=== PATIENT | female | born 1945 | race Caucasian/White ===

== ENCOUNTER → 2017-02-06 | Outpatient (CLI) | payer MEDICARE, BC ==
--- NOTE | 2017-02-07 09:28 | MM ---
Reason for exam: screening (asymptomatic). Last mammogram was performed 1 year and 3 months ago. History: Patient is postmenopausal. Benign core biopsy of the right breast, 2000. Took unspecified hormones for 3 years 11 months. Physical Findings: A clinical breast exam by your physician is recommended on an annual basis and results should be correlated with mammographic findings. MG 3D Screening Mammo W/Cad Bilateral CC and MLO view(s) were taken. Prior study comparison: November 01, 2015, bilateral MG 3d screening mammo w/cad. January 19, 2014, bilateral digital screening mammo w/CAD. There are scattered fibroglandular densities. There is chronic nodularity in the right breast. No significant changes when compared with prior studies. ASSESSMENT: Benign, BI-RAD 2 RECOMMENDATION: Routine screening mammogram of both breasts in 1 year.
== END | disposition home or self-care (01) ==
LOC: RADMAMWWP 11:12
PROVIDERS: ATTEND Obstetrics & Gynecology
DX: Z12.31 Encounter for screening mammogram for malignant neoplasm of breast (principal)
CPT/HCPCS: 77063; G0202

== ENCOUNTER → 2017-03-10 | Outpatient (CLI) | payer MEDICARE, BC ==
[2017-03-10 09:40] LABS: ALT 37 U/L (9-52); AST 36 U/L (14-36); Alkaline Phosphatase 90 U/L (38-126); Anion Gap 8 mmol/L; Blood Urea Nitrogen 17 mg/dL (7-17); Calcium 9.4 mg/dL (8.4-10.2); Carbon Dioxide 25 mmol/L (22-30); Chloride 110 mmol/L (98-107); Cholesterol 164 mg/dL (<200); Glucose 100 mg/dL (74-99); HDL Cholesterol 87 mg/dL (40-60); Non-African American GFR(MDRD) >60 (>60 ml/min/1.73 sqM); Potassium 4.1 mmol/L (3.5-5.1); Sodium 143 mmol/L (137-145); Total Bilirubin 0.8 mg/dL (0.2-1.3); Total Protein 6.4 g/dL (6.3-8.2); Triglycerides 48 mg/dL (<150)
== END | disposition home or self-care (01) ==
LOC: LABWHC1 08:07
PROVIDERS: ATTEND Internal Medicine Interventional Cardiology
DX: E78.2 Mixed hyperlipidemia (principal)
CPT/HCPCS: 36415; 80053; 80061

== ENCOUNTER → 2018-01-06 | Outpatient (CLI) | payer MEDICARE, BC ==
[2018-01-06 09:29] LABS: ALT 47 U/L (9-52); AST 32 U/L (14-36); Cholesterol 154 mg/dL (<200); HDL Cholesterol 65 mg/dL (40-60); LDL Cholesterol,Calculated 78 mg/dL (0-99); Triglycerides 55 mg/dL (<150)
== END | disposition home or self-care (01) ==
LOC: LABWHC1 08:11
PROVIDERS: ATTEND Internal Medicine Interventional Cardiology
DX: E78.2 Mixed hyperlipidemia (principal)
CPT/HCPCS: 36415; 80061; 84450; 84460

== ENCOUNTER → 2018-06-15 | Outpatient (CLI) | payer MEDICARE, BC ==
--- NOTE | 2018-06-15 13:30 | BD ---
EXAMINATION TYPE: Axial Bone Density DATE OF EXAM: 06/15/2018 COMPARISON: 2013 CLINICAL HISTORY: post menopausal Height: 5'1 Weight: 135 FRAX RISK QUESTIONS: Family History (Parent hip fracture): y Secondary Osteoporosis: 3. Menopause before 45: RISK FACTORS HISTORY OF: Family History of Osteoporosis: Postmenopausal woman: MEDICATIONS: Additional Medications: cholesterol Additional History: EXAM MEASUREMENTS: Bone mineral densitometry was performed using the [employer] System. Bone mineral density as measured about the Lumbar spine is: ----- L1-L4(G/cm2): 1.086 T Score Values are as follows: ----- L2: -1.0 ----- L3: -0.6 ----- L4: -0.9 ----- L1-L4:-0.8 Bone mineral density has: Decreased -6.4% since study of: 01/19/2014 Bone mineral density about the R hip (g/cm2): 0.686 Bone mineral density about the L hip (g/cm2): 0.658 T Score values are as follows: -----R Neck: 0.1 -----L Neck: -0.1 -----R Total: 0.4 -----L Total: 0.4 Bone mineral density has: Decreased -6.7 % since study of: 01/19/2014 IMPRESSION: Normal study NOTE: T-SCORE=SD OF THE YOUNG ADULT MEAN.
--- NOTE | 2018-06-17 09:45 | MM ---
Reason for exam: screening (asymptomatic). Last mammogram was performed 1 year and 4 months ago. History: Patient is postmenopausal and has history of other cancer at age 44. Benign core biopsy of the right breast, 2000. Took estrogen for 3 years 11 months. Took progesterone for 3 years 11 months. Took unspecified hormones for 3 years 11 months. Physical Findings: A clinical breast exam by your physician is recommended on an annual basis and results should be correlated with mammographic findings. MG 3D Screening Mammo W/Cad Bilateral CC and MLO view(s) were taken. Prior study comparison: February 06, 2017, bilateral MG 3d screening mammo w/cad. November 01, 2015, bilateral MG 3d screening mammo w/cad. The breast tissue is heterogeneously dense. This may lower the sensitivity of mammography. Finding #1: Architectural distortion in the upper outer quadrant, anterior position of the right breast consistent with known biopsy change redemonstrated. Finding #2: There are typically benign vascular, round calcifications in both breasts. There is no discrete abnormality. ASSESSMENT: Benign, BI-RAD 2 RECOMMENDATION: Routine screening mammogram of both breasts in 1 year.
== END | disposition home or self-care (01) ==
LOC: RADMAMWWP 07:58
PROVIDERS: ATTEND Obstetrics & Gynecology
DX: Z12.31 Encounter for screening mammogram for malignant neoplasm of breast (principal); Z78.0 Asymptomatic menopausal state; Z13.820 Encounter for screening for osteoporosis
CPT/HCPCS: 77063; 77067; 77080

== ENCOUNTER → 2018-07-17 | Outpatient (CLI) | payer MEDICARE, BC ==
[2018-07-17 09:30] LABS: ALT 39 U/L (9-52); AST 32 U/L (14-36); Albumin 3.6 g/dL (3.5-5.0); Alkaline Phosphatase 91 U/L (38-126); Anion Gap 6 mmol/L; Blood Urea Nitrogen 19 mg/dL (7-17); Calcium 9.5 mg/dL (8.4-10.2); Carbon Dioxide 29 mmol/L (22-30); Chloride 108 mmol/L (98-107); Cholesterol 187 mg/dL (<200); Glucose 100 mg/dL (74-99); HDL Cholesterol 90 mg/dL (40-60); LDL Cholesterol,Calculated 85 mg/dL (0-99); Potassium 4.3 mmol/L (3.5-5.1); Sodium 143 mmol/L (137-145); Total Bilirubin 0.5 mg/dL (0.2-1.3); Total Protein 6.3 g/dL (6.3-8.2); Triglycerides 59 mg/dL (<150)
== END ==
LOC: LABWHC1 08:02
PROVIDERS: ATTEND Internal Medicine Interventional Cardiology
DX: E78.2 Mixed hyperlipidemia (principal)
CPT/HCPCS: 36415; 80053; 80061

== ENCOUNTER → 2019-01-23 | Outpatient (CLI) | payer MEDICARE, BC ==
[2019-01-23 17:03] LABS: Albumin 3.9 g/dL (3.80-4.90); Albumin/Globulin Ratio 2.05 (1.60-3.17); Anion Gap 5.9 mmol/L (4.00-12.00); Calcium 9.4 mg/dL (8.7-10.3); Carbon Dioxide 29.1 mmol/L (21.6-31.8); Globulin 1.9 g/dL (1.6-3.3); Potassium 4.4 mmol/L (3.5-5.5); Total Bilirubin 0.5 mg/dL (0.3-1.2); Total Protein 5.8 g/dL (6.2-8.2)
== END ==
LOC: LABWHC1 08:28
PROVIDERS: ATTEND Internal Medicine Interventional Cardiology
DX: E78.2 Mixed hyperlipidemia (principal)
CPT/HCPCS: 36415; 80053; 80061

== ENCOUNTER → 2019-06-22 | Outpatient (CLI) | payer MEDICARE, BC ==
--- NOTE | 2019-06-23 12:10 | MM ---
Reason for exam: screening (asymptomatic). Last mammogram was performed 1 year ago. History: Patient is postmenopausal and has history of other cancer at age 44. Benign core biopsy of the right breast, 2000. Took estrogen for 3 years 11 months. Took progesterone for 3 years 11 months. Took unspecified hormones for 3 years 11 months. Physical Findings: A clinical breast exam by your physician is recommended on an annual basis and results should be correlated with mammographic findings. MG 3D Screening Mammo W/Cad Bilateral CC and MLO view(s) were taken. Prior study comparison: June 15, 2018, bilateral MG 3d screening mammo w/cad. February 06, 2017, bilateral MG 3d screening mammo w/cad. The breast tissue is heterogeneously dense. This may lower the sensitivity of mammography. No significant changes when compared with prior studies. ASSESSMENT: Benign, BI-RAD 2 RECOMMENDATION: Routine screening mammogram of both breasts in 1 year.
== END | disposition home or self-care (01) ==
LOC: RADMAMWWP 14:26
PROVIDERS: ATTEND Obstetrics & Gynecology
DX: Z12.31 Encounter for screening mammogram for malignant neoplasm of breast (principal)
CPT/HCPCS: 77063; 77067

== ENCOUNTER → 2019-08-24 | Outpatient (CLI) | payer MEDICARE, BC ==
[2019-08-24 15:51] LABS: Chol/HDL Ratio 2.67; LDL Cholesterol,Calculated 103.4 mg/dL (0.0-131.0); VLDL Calculation 16.6 mg/dL (5.00-40.00)
== END ==
LOC: LABWHC1 08:47
PROVIDERS: ATTEND Internal Medicine Interventional Cardiology
DX: E78.2 Mixed hyperlipidemia (principal)
CPT/HCPCS: 36415; 80061; 84450; 84460

== ENCOUNTER 2019-09-09 09:51 | Day surgery (SDC) | payer MEDICARE, BC ==
[2019-09-08 08:25] VITALS: BMI 25.2
[~2019-09-09 09:51] MED LIST: DEXAMETHASONE SOD PHOSPHATE 10 MG/ML 1 ML VIAL IV ONE; HYDROmorphone 0.5 MG/0.5 ML SYRINGE IVP PRN; LACTATED RINGERS 1,000 ML IV SCH; ONDANSETRON 4 MG/2 ML VIAL IVP ONE; ONDANSETRON 4 MG/2 ML VIAL IVP PRN
[2019-09-09 10:22] VITALS: TEMP 97.9
[2019-09-09] MEDS ORDERED: MIDAZOLAM 2 MG/2 ML VIAL IV ONE (11:24)
[2019-09-09] MEDS ORDERED: fentaNYL (PF) 50 MCG/ML 2 ML AMP IV ONE (11:25)
--- NOTE | 2019-09-09 12:27 | P.ANPRN ---
Procedure Note - Anesthesia - Nerve Block Performed Left Popliteal Single Time Out Performed: Yes Date of Procedure: 09/09/19 Procedure Start Time: 11:28 Procedure Stop Time: 11:40 Location of Patient: PreOp Indication: Acute Post-Operative Pain Specifically requested for management of pain by DrAyesha: Grant Lang Sedation Type: Sedate with meaningful contact maintained Preparation: Sterile Prep Position: Right Lateral Catheter: None Needle Types: Pajunk Needle Gauge: 21 Ultrasound used to visualize needle placement: Yes Ultrasound used to observe medication spread: Yes Injectate: 0.5% Ropivacaine (see comment for volume) (20 cc plus decadron 4 mg) Blood Aspirated: No Pain Paresthesia on Injection Noted: No Resistance on Injection: Normal Image Stored and Saved: Yes Events: Uneventful and Well Tolerated
[2019-09-09] MEDS ORDERED: LIDOCAINE 1% INJ 10MG/ML (20 ML MDV) ONE (13:20)
[2019-09-09] MEDS ORDERED: MIDAZOLAM 2 MG/2 ML VIAL ONE (13:20)
[2019-09-09] MEDS ORDERED: fentaNYL (PF) 50 MCG/ML 2 ML AMP ONE (13:20)
[2019-09-09] MEDS ORDERED: ePHEDrine SULFATE/0.9% NACL/PF 50 MG/5 ML SYRINGE IV ONE (13:20)
[2019-09-09] MEDS ORDERED: PROPOFOL 10 MG/ML 20 ML VIAL IV ONE (13:20)
[2019-09-09] MEDS ORDERED: DEXAMETHASONE SOD PHOSPHATE 4 MG/ML 1 ML VIAL ONE ×2 (13:20)
[2019-09-09] MEDS ORDERED: ROPIVACAINE 5 MG/ML 30 ML VIAL ONE ×2 (13:20)
[2019-09-09] MEDS ORDERED: SUCCINYLCHOLINE CHLORIDE 100 MG/5 ML SYR IV ONE (13:20)
[2019-09-09] MEDS ORDERED: .MORPHINE SULFATE (INJ) 10 MG/ML SYRINGE ONE (13:20)
[2019-09-09] MEDS ORDERED: LACTATED RINGERS 1,000 ML IV ONE (16:34)
--- NOTE | 2019-09-09 16:37 | P.OP ---
Date of Procedure: 09/09/19 Preoperative Diagnosis: 1. Left hypermobile hallux valgus with increased intermetatarsal angle 2. 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 Left gastrocnemius equinus contracture 4. Left second toe mucous cyst Postoperative Diagnosis: Same Procedure(s) Performed: 1. Correction of left first ray hypermobility and midfoot arthritis with arthrodesis of multiple mid tarsal joints (arthrodesis of the first and second tarsometatarsal joint) 2. Correction of hallux valgus deformity with left modified Meyer procedure 3. Left gastrocnemius recession 4. Excision of mucous cyst left second toe 5. Application of short leg splint by physician, left leg Anesthesia: SUSHMA, regional Surgeon: Grant Lang Special Procedures Nurse #1: Emily Jay Estimated Blood Loss (ml): 25 IV fluids (ml): 1,500 Pathology: none sent Condition: stable Disposition: PACU Indications for Procedure: The patient is very pleasant. Healthy 74-year-old female who is at a long- standing history of problems with her left foot. She had a hypermobile hallux valgus and midfoot arthritis. She also had a mucous cyst over the second toe. She failed over 6 months of nonsurgical treatment and requested surgery. We discussed the multitude of different surgical procedures to address hallux valgus deformities. We also discussed treating her midfoot arthritis and mucous cyst at the same setting. My recommendation was to perform a midfoot fusion of the first and second tarsometatarsal joints to address both her hallux valgus deformity and midfoot arthritis. We also discussed excising the second toe mucous cyst and offloading the midfoot with a gastroc recession. We discussed the potential risks and complications of surgery including but not limited to risk of anesthesia, superficial infection, deep infection, delayed wound healing, superficial wound necrosis, nonunion of the fusion site, malunion of the fusion sites, somatic hardware, recurrence of deformity, damage to local blood vessels or nerves, continued or worsened pain, need for further surgery, DVT, PE, other medical complications, and possibly loss of life or limb. The patient voiced her understanding that while these are the most common complicati ons other less common complications are possible. She provided verbal and written consent to go forward with surgery. Description of Procedure: The patient is a benefit in preoperative holding and the correct left leg was marked with my initials. I reviewed the consent form with the patient and all of her questions were answered. The patient was given a block by anesthesia. She was then brought back to the operating room by anesthesia. She was positioned on the OR table where general anesthetic and preoperative antibiotics were given. A tourniquet was applied over the proximal aspect of the right leg. All bony prominences were well-padded. The right leg was then prepped and draped in the standard sterile fashion. Prior to starting surgery timeout was performed identifying the correct patient, operative extremity, and procedure. The patient's leg was then elevated, exsanguinated with an Esmarch bandage, and the tourniquet was inflated to 250 mmHg. I began by performing a gastrocnemius recession. A Ashwini-type lengthening was performed. A 3 cm longitudinal incision was marked out 1 thumb breadth posterior to the tibia at the medial distal muscle belly of the gastrocnemius. Skin incision was made with a scalpel and dissection was carried down carefully to the subcu cutaneous tissue. Crossing veins were controlled with electrocautery. The superficial fascia was incised. I bluntly developed the interval between the superficial fascia and the gastrocnemius aponeurosis in between the gastrocnemius aponeurosis and the soleus fascia. The sural nerve was seen to be adherent to the superficial fascia. Modified right angle retractors were placed in the gastrocnemius aponeurosis was cut in its entirety from medial to lateral. The wound was thoroughly irrigated and closed in layers. Attention was then turned to the left second toe. There was a digital mucous cyst over the dorsolateral aspect of the DIP joint. An elliptical incision was marked out over the toe in the skin and cyst was sharply removed with a scalpel. Dissection was carried down to the level of the DIP joint. There was a small osteophyte which was contoured. The wound was thoroughly irrigated and the incision was closed with 3-0 nylon. Attention was then turned to the dorsal midfoot. A longitudinal incision starting proximally at the proximal pole of the medial cuneiform and extending distally was centered between the first and second metatarsals. Skin incision was made with a scalpel. Dissection was carried down carefully through the subcutaneous tissue with tenotomy scissors. The EHL tendon sheath was incised and the tendon retracted laterally. The ostium over the first tarsometatarsal joint was sharply elevated. A saw was used to plane the first metatarsal base to allow for rotation. A quarter inch osteotome was used to free up the plantar capsule. Attention was then turned to the first webspace. A longitudinal incision was made in the first webspace. Dissection was carried down carefully through subcutaneous tissue. The lateral capsule, sesamoid suspensory ligament and adductor hallucis tendon were released to perform a modified Meyer portion of the procedure. Attention was then turned proximally. A joystick K wire was placed at the base of the first metatarsal. With rotation of this joystick pin and light pressure over the distal metatarsal I was able to close down the intermetatarsal angle and cover the sesamoids. A stab incision was made lateral base of the first metatarsal. A 2.5 mm fulcrum was placed. A stab incision was made over the midshaft of the second metatarsal. A positioner was placed with 1 luz maria over the lateral shaft of the second metatarsal and the other luz maria over the medial ridge of the first metatarsal. An internal medicine physician assistant rotated the joystick pin and I gently tightened the positioner to 2 fingerbreadths of tightness. Fluoroscopy was used to verify correction of the intermetatarsal angle, coverage of the sesamoids, and medial gapping of the first tarsometatarsal joint. A lateral x- ray was taken to verify that there was no elevation of the first metatarsal. A K wire was placed through the positioner to hold the reduction. A joint seeker was then placed for a low angle cut guide as far lateral as possible. I "made a corner" with the fulcrum. A low angle cutting guide was then gently slipped over the joint seeker. Its position was verified and the cutting guide was pinned into place. I verified that flat even cuts were made off the base of the first metatarsal and the cut off the medial cuneiform was parallel with the second tarsometatarsal joint. A small microsagittal saw was used to remove bone from the base of the first metatarsal and medial cuneiform. The oblique pin through the cut guide, the K wire to the positioner, and the positioner were removed. A compressor distractor device was placed with an extra 10 of rotation in the first tarsometatarsal joint was distracted. The Bone from both the medial cuneiform and first metatarsal removed. Flat even cuts had been made. The wound was thoroughly irrigated and the Bone was fenestrated with a 2.0 mm drill bit to facilitate fusion. The compressor device was gently tightened and the 1 mm fulcrum was placed laterally as the joint compressed. Fluoroscopy was verified that the joint was compressed and the correction was maintained on both an AP and a lateral view. An olive-tipped K wire was placed dorsolaterally across the joint generating excellent compression. One locking plate was placed directly medial and 2.7 mm locking screws were placed. The second locking plate was placed dorsally and locking screws were placed. The likely the joint appeared to be compressed nicely. Fluoroscopy was used to verify compression across the joint and correction of deformity. There is a small bump over the medial eminence or longitudinal incision was made over the medial eminence of the first MTP joint. The capsule was incised longitudinally. A Wilner was used to contour the bony bump. A small amount of the medial capsule was removed and the medial capsule was imbricated using 2-0 Vicryl after being irrigated. The deep subcu was reapproximated using 3-0 Monocryl and the skin was closed with 3-0 nylon. Attention was then turned to the second tarsometatarsal joint. Through the previously used dorsomedial incision centered between the first and second metatarsal a window was made through the intrinsic extensor muscle and long extensor tendons. Dissection was brought down directly onto the second tarsometatarsal joint. There was a large ganglion cyst emanating from the joint which was sharply excised. The joint was exposed. Distraction was applied with K wires. A Wilner was used to remove bone spurs from the dorsal aspect of the joint. Curettes and osteotomes were used to remove remaining articular cartilage. The wound was irrigated. A 2.0 mm drill bit was used to thoroughly fenestrate the cut bone. Bone from the medial cuneiform cut was then used as bone graft to fill in the second tarsometatarsal joint. An obliquely placed K wire was placed across the joint. A 2.7 mm lag screw was placed from the dorsal ridge of the second metatarsal into the middle cuneiform. Excellent compression was achieved. Final fluoroscopic images were taken. The wounds were thoroughly irrigated and closed in layers. The tourniquet was let down. Sterile dressings consisting of brown quarter stretchy Steri-Strips, Betadine soaked Adaptic, 4 x 4, web roll and a bulky Bradshaw splint was applied. The patient was awoken from her anesthetic, transferred from the OR table to a gurney, and brought to recovery having type procedure well. Emily Jay PA-C was required as a skilled internal medicine physician assistant for patient positioning, surgical exposure, retraction, placement of hardware, closure of wound, and application of dressing. The patient is going to be discharged home as an outpatient. She is to remain nonweightbearing on her right leg in a bulky Bradshaw splint. She'll be given pain medication. Follow-up in 2 weeks for splint removal, nonweightbearing x-rays of the left foot, wound check, and likely suture removal.
[2019-09-09 17:30] VITALS: RESP 16
[2019-09-09 18:02] VITALS: BP 138/65; PULSE 71
--- NOTE | 2019-09-10 08:49 | FL ---
EXAMINATION TYPE: FL guidance operating room, XR foot limited LT DATE OF EXAM: 09/09/2019 CLINICAL HISTORY: Left foot arthrodesis. Fluoroscopic documentation TECHNIQUE: Fluoroscopy. COMPARISON: None. FINDINGS: Fluoroscopic guidance was provided during pain relief procedure performed by Dr. Lang . A total of 3 minutes and 41 seconds of fluoroscopic time was utilized during the procedure and 6 s pot images are acquired. Images acquired left foot arthrodesis. IMPRESSION: As Above.
== END 2019-09-09 18:12 | disposition home or self-care (01) ==
LOC: OR 09:51
PROVIDERS: ATTEND Orthopaedic Surgery
DX: M20.12 Hallux valgus (acquired), left foot (principal); M19.072 Primary osteoarthritis, left ankle and foot; M21.6X2 Other acquired deformities of left foot; M25.775 Osteophyte, left foot; M67.472 Ganglion, left ankle and foot; I10 Essential (primary) hypertension; E78.5 Hyperlipidemia, unspecified; K21.9 Gastro-esophageal reflux disease without esophagitis; C44.90 Unspecified malignant neoplasm of skin, unspecified; D17.9 Benign lipomatous neoplasm, unspecified; Z79.899 Other long term (current) drug therapy; Z79.82 Long term (current) use of aspirin; Z83.3 Family history of diabetes mellitus; Z82.49 Family history of ischemic heart disease and other diseases of the circulatory system
CPT/HCPCS: 28092; 27687; 28730; 28291; 64450; 76942; 73620; C1713; J2250; J1100 ×2; J2270; J0690; J2405; J2001; J3010; J2795; J0330; J2704; 64445

== ENCOUNTER → 2020-03-23 | Outpatient (CLI) | payer MEDICARE, BC ==
[2020-03-23 19:23] LABS: Albumin/Globulin Ratio 1.9 (1.60-3.17); Anion Gap 9.2 mmol/L (4.00-12.00); BUN/Creat Ratio 23.75 Ratio (12.00-20.00); Calcium 9.4 mg/dL (8.7-10.3); Carbon Dioxide 25.8 mmol/L (21.6-31.8); Chol/HDL Ratio 2.34; Globulin 2.1 g/dL (1.6-3.3); LDL Cholesterol,Calculated 70.4 mg/dL (0.0-131.0); Non-African American GFR(CKD) 71.6 (60.0-200.0); Potassium 4.2 mmol/L (3.5-5.5); Total Bilirubin 0.6 mg/dL (0.2-1.2); Total Protein 6.1 g/dL (6.2-8.2); VLDL Calculation 19.6 mg/dL (5.00-40.00)
== END | disposition home or self-care (01) ==
LOC: LABWHC1 07:37
PROVIDERS: ATTEND Internal Medicine Interventional Cardiology
DX: E78.2 Mixed hyperlipidemia (principal)
CPT/HCPCS: 36415; 80053; 80061

== ENCOUNTER → 2020-08-23 | Outpatient (CLI) | payer MEDICARE, OTHER ==
--- NOTE | 2020-08-25 09:12 | MM ---
Reason for exam: screening (asymptomatic). Last mammogram was performed 1 year and 2 months ago. History: Patient is postmenopausal and has history of other cancer at age 44. Benign core biopsy of the right breast, 2000. Took estrogen for 3 years 11 months. Took progesterone for 3 years 11 months. Took unspecified hormones for 3 years 11 months. Physical Findings: A clinical breast exam by your physician is recommended on an annual basis and results should be correlated with mammographic findings. MG 3D Screening Mammo W/Cad Bilateral CC and MLO view(s) were taken. Prior study comparison: June 22, 2019, bilateral MG 3d screening mammo w/cad. June 15, 2018, bilateral MG 3d screening mammo w/cad. The breast tissue is heterogeneously dense. This may lower the sensitivity of mammography. No significant changes when compared with prior studies. ASSESSMENT: Benign, BI-RAD 2 RECOMMENDATION: Routine screening mammogram of both breasts in 1 year.
== END | disposition home or self-care (01) ==
LOC: RADMAMWWP 11:12
PROVIDERS: ATTEND Obstetrics & Gynecology
DX: Z12.31 Encounter for screening mammogram for malignant neoplasm of breast (principal)
CPT/HCPCS: 77063; 77067

== ENCOUNTER → 2020-09-21 | Outpatient (CLI) | payer MEDICARE, OTHER ==
[2020-09-21 15:24] LABS: African American GFR (CKD) 63.4 (60.0-200.0); Albumin 4.1 g/dL (3.80-4.90); Albumin/Globulin Ratio 2.05 (1.60-3.17); Anion Gap 5.6 mmol/L (4.00-12.00); Calcium 9.7 mg/dL (8.7-10.3); Carbon Dioxide 28.4 mmol/L (21.6-31.8); Chol/HDL Ratio 2.15; LDL Cholesterol,Calculated 72.6 mg/dL (0.0-131.0); Non-African American GFR(CKD) 54.7 (60.0-200.0); Potassium 4.3 mmol/L (3.5-5.5); Total Bilirubin 0.7 mg/dL (0.2-1.2); Total Protein 6.1 g/dL (6.2-8.2); VLDL Calculation 12.4 mg/dL (5.00-40.00)
== END | disposition home or self-care (01) ==
LOC: LABWHC1 07:59
PROVIDERS: ATTEND Internal Medicine Interventional Cardiology
DX: E78.2 Mixed hyperlipidemia (principal)
CPT/HCPCS: 36415; 80053; 80061

== ENCOUNTER → 2021-03-13 | Outpatient (CLI) | payer MEDICARE ==
[2021-03-13 19:08] LABS: African American GFR (CKD) 71.5 (60.0-200.0); Albumin 3.9 g/dL (3.80-4.90); Albumin/Globulin Ratio 1.86 (1.60-3.17); Anion Gap 7.2 mmol/L (4.00-12.00); BUN/Creat Ratio 24.44 Ratio (12.00-20.00); Calcium 8.9 mg/dL (8.7-10.3); Carbon Dioxide 25.8 mmol/L (21.6-31.8); Chol/HDL Ratio 2.58; Globulin 2.1 g/dL (1.6-3.3); LDL Cholesterol,Calculated 79.8 mg/dL (0.0-131.0); Non-African American GFR(CKD) 61.7 (60.0-200.0); Potassium 4.4 mmol/L (3.5-5.5); Total Bilirubin 0.6 mg/dL (0.3-1.2); VLDL Calculation 13.2 mg/dL (5.00-40.00)
== END | disposition home or self-care (01) ==
LOC: LABWHC1 08:02
PROVIDERS: ATTEND Internal Medicine Interventional Cardiology
DX: E78.2 Mixed hyperlipidemia (principal)
CPT/HCPCS: 36415; 80053; 80061

== ENCOUNTER → 2021-09-21 | Outpatient (CLI) | payer MEDICARE ==
[2021-09-21 17:20] LABS: ALT 34 U/L (8-44); AST 25 U/L (13-35); Chol/HDL Ratio 2.34 Ratio; LDL Cholesterol,Calculated 88.7 mg/dL (0.0-131.0); VLDL Calculation 14.46 mg/dL (5.00-40.00)
== END ==
LOC: LABWHC1 08:06
PROVIDERS: ATTEND Internal Medicine Interventional Cardiology
DX: E78.2 Mixed hyperlipidemia (principal)
CPT/HCPCS: 36415; 80061; 84450; 84460

== ENCOUNTER → 2021-10-15 | Outpatient (CLI) | payer MEDICARE ==
--- NOTE | 2021-10-15 12:43 | MM ---
Reason for exam: screening (asymptomatic). Last mammogram was performed 1 year and 2 months ago. History: Patient is postmenopausal and has history of other cancer at age 44. Benign core biopsy of the right breast, 2000. Took estrogen for 3 years 11 months. Took progesterone for 3 years 11 months. Took unspecified hormones for 3 years 11 months. Physical Findings: A clinical breast exam by your physician is recommended on an annual basis and results should be correlated with mammographic findings. MG 3D Screening Mammo W/Cad Bilateral CC and MLO view(s) were taken. Prior study comparison: August 23, 2020, bilateral MG 3d screening mammo w/cad. June 22, 2019, bilateral MG 3d screening mammo w/cad. The breast tissue is heterogeneously dense. This may lower the sensitivity of mammography. There are benign appearing round vascular calcifications bilaterally. There is no discrete abnormality. ASSESSMENT: Benign, BI-RAD 2 RECOMMENDATION: Routine screening mammogram of both breasts in 1 year.
== END | disposition home or self-care (01) ==
LOC: RADMAMWWP 07:16
PROVIDERS: ATTEND Obstetrics & Gynecology
DX: Z12.31 Encounter for screening mammogram for malignant neoplasm of breast (principal); Z78.0 Asymptomatic menopausal state
CPT/HCPCS: 77063; 77067

== ENCOUNTER → 2021-12-07 | Outpatient (CLI) | payer MEDICARE ==
[2021-12-07 19:00] LABS: ALT 32 U/L (8-44); AST 30 U/L (13-35)
== END | disposition home or self-care (01) ==
LOC: LABWHC1 13:36
PROVIDERS: ATTEND Dermatology Procedural Dermatology
DX: B35.1 Tinea unguium (principal)
CPT/HCPCS: 36415; 84450; 84460

== ENCOUNTER → 2022-03-06 | Outpatient (CLI) | payer MEDICARE ==
[2022-03-06 14:50] LABS: ALT 25 U/L (8-44); AST 24 U/L (13-35); Albumin 3.8 g/dL (3.8-4.9); Albumin/Globulin Ratio 1.58 (1.60-3.17); Alkaline Phosphatase 64 U/L (41-126); Blood Urea Nitrogen 16.2 mg/dL (9.0-27.0); Calcium 9.2 mg/dL (8.7-10.3); Carbon Dioxide 26.7 mmol/L (20.0-27.5); Chloride 109 mmol/L (96-109); Chol/HDL Ratio 2.46 Ratio; Globulin 2.4 g/dL (1.6-3.3); Glucose 97 mg/dL (70-110); LDL Cholesterol,Calculated 74.5 mg/dL (0.0-131.0); Non-African American GFR(CKD) 61.2 (60.0-200.0); Potassium 4.4 mmol/L (3.5-5.5); Sodium 143 mmol/L (135-145); Total Protein 6.2 g/dL (6.2-8.2); VLDL Calculation 15.56 mg/dL (5.00-40.00)
== END | disposition home or self-care (01) ==
LOC: LABWHC1 08:04
PROVIDERS: ATTEND Internal Medicine Interventional Cardiology
DX: E78.2 Mixed hyperlipidemia (principal)
CPT/HCPCS: 36415; 80053; 80061

== ENCOUNTER → 2022-06-20 | Outpatient (CLI) | payer MEDICARE ==
[2022-06-20 18:16] LABS: Basophils # (A) 0.07 X 10*3/uL (0.00-0.10); Basophils % (A) 1.4 %; Eosinophils # (A) 0.23 X 10*3/uL (0.04-0.35); Eosinophils % (A) 4.5 %; HCT 39.7 % (37.2-46.3); HGB 13.1 g/dL (12.0-15.0); Immature Grans, Automated 0.2 %; Lymphocytes # (A) 1.21 X 10*3/uL (0.90-5.00); Lymphocytes % (A) 23.6 %; MCH 30.2 pg (27.0-32.0); MCV 91.5 fL (80.0-97.0); Mean Platelet Volume 10.2 fL (9.5-12.2); Monocytes # (A) 0.58 X 10*3/uL (0.20-1.00); Monocytes % (A) 11.3 %; NRBC Per 100 WBC 0 /100 WBCS (0.0-0.0); Neutrophils # (A) 3.02 X 10*3/uL (1.80-7.70); Platelet Count 259 X 10*3/uL (140-440); RBC 4.34 X 10*6/uL (4.10-5.20); RDW 13.4 % (11.5-14.5); WBC 5.12 X 10*3/uL (4.50-10.00)
[2022-06-20 18:18] LABS: ALT 27 U/L (8-44); AST 27 U/L (13-35)
== END | disposition home or self-care (01) ==
LOC: LABWHC1 11:18
PROVIDERS: ATTEND Physician Assistant Medical
DX: B35.1 Tinea unguium (principal)
CPT/HCPCS: 36415; 84450; 84460; 85025

== ENCOUNTER → 2022-08-26 | Outpatient (CLI) | payer MEDICARE ==
--- NOTE | 2022-08-26 08:41 | XR ---
EXAMINATION TYPE: XR chest 2V DATE OF EXAM: 08/26/2022 COMPARISON: NONE HISTORY: Shortness of breath TECHNIQUE: Frontal and lateral views of the chest are obtained. FINDINGS: Scattered senescent parenchymal changes noted. No evidence for infiltrate. No evidence for atelectasis. Heart size is stable. Mediastinal structures are stable and grossly unremarkable. No evidence for hilar prominence. Degenerative changes dorsal spine. IMPRESSION: 1. No evidence for acute pulmonary disease.
== END | disposition home or self-care (01) ==
LOC: RADXRMAIN 08:18
PROVIDERS: ATTEND Otolaryngology
DX: R05.9 Cough, unspecified (principal)
CPT/HCPCS: 71046

== ENCOUNTER → 2022-09-12 | Outpatient (CLI) | payer MEDICARE ==
[2022-09-12 15:46] LABS: ALT 25 U/L (8-44); AST 21 U/L (13-35); Chol/HDL Ratio 2.36 Ratio; LDL Cholesterol,Calculated 72.6 mg/dL (0.0-131.0); VLDL Calculation 14.28 mg/dL (5.00-40.00)
== END | disposition home or self-care (01) ==
LOC: LABWHC1 07:42
PROVIDERS: ATTEND Internal Medicine Interventional Cardiology
DX: E78.2 Mixed hyperlipidemia (principal)
CPT/HCPCS: 36415; 80061; 84450; 84460

== ENCOUNTER → 2023-03-11 | Outpatient (CLI) | payer MEDICARE ==
--- NOTE | 2023-03-11 18:10 | BD ---
EXAMINATION TYPE: Axial Bone Density DATE OF EXAM: 03/11/2023 CLINICAL HISTORY: 78 years old Female. ICD-10 CODE: N95.1 POST MENOPAUSAL Height: 60.25 Weight: 135 FRAX RISK QUESTIONS: Family History (Parent hip fracture): yes, mother History of Fracture in Adulthood: no Secondary Osteoporosis: no RISK FACTORS HISTORY OF: Family History of Osteoporosis: yes, mother Active: yes Diet low in dairy products/other sources of calcium: no Postmenopausal woman: yes, age 48 Lost more than 2 inches in height since high school: no Frequent falls: no Poor Health: no MEDICATIONS: Additional Medications: yes cholesterol, hbp meds, reflux EXAM MEASUREMENTS: Bone mineral densitometry was performed using the [employer] System. Bone mineral density as measured about the Lumbar spine is: ----- L1-L4(G/cm2): 1.192 T Score Values are as follows: ----- L1: -1.1 ----- L2: 0.6 ----- L3: 0.6 ----- L4: 0.1 ----- L1-L4: 0.1 Z Score Values are as follows: ----- L1: 0.6 ----- L2: 2.4 ----- L3: 2.3 ----- L4: 1.8 ----- L1-L4: 1.8 Bone mineral density has: Increased 9.8% since study of: 06/15/2018 Bone mineral density about the R hip (g/cm2): 0.819 Bone mineral density about the L hip (g/cm2): 0.837 T Score values are as follows: -----R Neck: -2.6 -----L Neck: -2.8 -----R Total: -1.5 -----L Total: -1.4 Z Score values are as follows: -----R Neck: -0.6 -----L Neck: -0.8 -----R Total: 0.4 -----L Total: 0.5 Bone mineral density has: Decreased -1.7% since study of: 06/15/2018 FRAX%s: The graph provided illustrates a 41.7% chance for a major osteoporotic fx and a 30.9% chance for the hips probability for fx in 10 years time. IMPRESSION: Osteoporosis (T Score less than -2.5). There is increased fracture risk and therapy is usually indicated based on age. Re-Screen 1-2 years. NOTE: T-SCORE=SD OF THE YOUNG ADULT MEAN.
--- NOTE | 2023-03-12 07:39 | MM ---
Reason for Exam: Screening (asymptomatic). Last mammogram was performed 1 year(s) and 5 month(s) ago. Patient History: Menarche at age 10. First Full-Term at age 17. Postmenopausal. Other cancer, age 44. Estrogen for 3 years, 11 months. Progesterone for 3 years, 11 months. Unspecified Hormone for 3 years, 11 months. 2000, Benign Core Biopsy on the right side. Risk Values: Bonita 5 year model risk: 1.6%. NCI Lifetime model risk: 2.6%. Prior Study Comparison: 06/22/2019 Bilateral Screening Mammogram, [facility]. 08/23/2020 Bilateral Screening Mammogram, [facility]. 10/15/2021 Bilateral Screening Mammogram, [facility]. Tissue Density: The breast tissue is heterogeneously dense. This may lower the sensitivity of mammography. Findings: Analyzed By CAD. There is no suspicious group of microcalcifications or new suspicious mass in either breast. Benign-appearing calcifications within both breasts. Overall Assessment: Benign, BI-RAD 2 Management: Screening Mammogram of both breasts in 1 year. A clinical breast exam by your physician is recommended on an annual basis and results should be correlated with mammographic findings. Electronically signed and approved by: Yoseph Verdin D.O.
== END | disposition home or self-care (01) ==
LOC: RADBDWWP 15:09
PROVIDERS: ATTEND Obstetrics & Gynecology
DX: Z12.31 Encounter for screening mammogram for malignant neoplasm of breast (principal); M81.0 Age-related osteoporosis without current pathological fracture; M85.88 Other specified disorders of bone density and structure, other site; Z78.0 Asymptomatic menopausal state
CPT/HCPCS: 77063; 77067; 77080

== ENCOUNTER → 2023-03-12 | Outpatient (CLI) | payer MEDICARE ==
[2023-03-12 16:11] LABS: ALT 26 U/L (8-44); AST 24 U/L (13-35); Chol/HDL Ratio 2.73 Ratio; LDL Cholesterol,Calculated 85.6 mg/dL (0.0-131.0); VLDL Calculation 17.74 mg/dL (5.00-40.00)
== END | disposition home or self-care (01) ==
LOC: LABWHC1 07:53
PROVIDERS: ATTEND Internal Medicine Interventional Cardiology
DX: E78.2 Mixed hyperlipidemia (principal)
CPT/HCPCS: 36415; 80061; 84450; 84460

== ENCOUNTER → 2023-08-06 | Outpatient (CLI) | payer MEDICARE ==
--- NOTE | 2023-08-06 10:33 | MR ---
EXAMINATION TYPE: MR lumbar spine wo con DATE OF EXAM: 08/06/2023 COMPARISON: NONE HISTORY: low back pain for 6 months TECHNIQUE: T1 and T2 axial and sagittal images of the lumbar spine are submitted. FINDINGS: There is no abnormal signal seen within the visualized spinal cord or paraspinal soft tissu es. There is a scoliotic curvature of the spine. There is a left-sided ovarian cyst measuring 2 cm. At L1-2 there is severe degenerative disc disease but no disc herniation or canal stenosis. A slight 2 mm retrolisthesis. Neural foramina remain patent. A mild circumferential disc bulging. At L2-3 there is severe degenerative disc disease with discogenic marrow changes. Hypertrophic change of the facets. A broad-based disc bulging but no focal herniation or canal stenosis. Neural foramina patent. At L3-4 there is a moderate degenerative disc disease with moderate facet arthropathy and ligamentum flavum hypertrophy. No focal disc herniation or canal stenosis. No evidence of neural foraminal encro achment. At L4-5 there is severe degenerative disc disease with discogenic marrow changes. There is a grade 1 anterolisthesis L4-L5 with advanced facet arthropathy greater on the right area ligamentum flavum hyp ertrophy is seen and there is broad-based central disc bulging, mild canal stenosis and bilateral for aminal encroachment greater on the right. At L5-S1 there is severe degenerative disc disease with grade 1 anterior listhesis advanced facet art hropathy. Broad-based disc bulging with mild effacement of thecal sac but no evidence of focal hernia tion. No foraminal encroachment. Incidental note is made of a Tarlov cyst at the S2 level. IMPRESSION: 1. Scoliosis with severe multilevel degenerative disc disease and grade 1 anterolisthesis L4-5 and L5 -S1. Mild canal stenosis L4-L5 with bilateral foraminal encroachment greater on the right. 2. Advanced facet arthropathy L4-5 and L5-S1. 3. There is a partially included 2 cm left ovarian cyst. Considering the patient's demographics would recommend pelvic ultrasound to exclude ovarian lesion. Correlation with CA 125 could be obtained as clinically warranted.
== END | disposition home or self-care (01) ==
LOC: RADMRIMAIN 09:31
PROVIDERS: ATTEND Orthopaedic Surgery
DX: M47.817 Spondylosis without myelopathy or radiculopathy, lumbosacral region (principal); M41.86 Other forms of scoliosis, lumbar region; M43.17 Spondylolisthesis, lumbosacral region; M48.061 Spinal stenosis, lumbar region without neurogenic claudication; M99.73 Connective tissue and disc stenosis of intervertebral foramina of lumbar region; N83.292 Other ovarian cyst, left side
CPT/HCPCS: 72148

== ENCOUNTER → 2023-08-26 | Outpatient (CLI) | payer MEDICARE ==
--- NOTE | 2023-08-26 16:58 | US ---
EXAMINATION TYPE: US pelvic complete DATE OF EXAM: 08/26/2023 COMPARISON: MRI 08/06/2023 CLINICAL INDICATION: Female, 78 years old with history of N83.202 UNSPECIFIED OVARIAN CYST, LEFT SIDE ; left ovarian cysts seen on MRI TECHNIQUE: Transabdominal (TA). Transabdominal sonographic images of the pelvis were acquired. EXAM MEASUREMENTS: Uterus: 6.5 x 2.3 x 4.2 cm Endometrial Stripe: 0.4 cm Left Ovary: 3.8 x 2.8 x 4.5 cm 1. Uterus: Anteverted Heterogenous with some calcifications 2. Endometrium: appears wnl 3. Right Ovary: Obscured by overlying bowel gas 4. Left Ovary: Ovarian tissue is not well visualized. Multiple anechoic areas seen largest measuring 3.2 x 1.8 x 1.8 cm. 3.0 x 2.0 x 2.3 cm. 5. Bilateral Adnexa: wnl 6. Posterior cul-de-sac: wnl IMPRESSION: 1. No evidence for acute process. 2. Complicated left ovarian cysts the largest measuring up to 3.2 cm. Consider short-term follow-up in 6 months to ensure stability. 3. Endometrium within normal limits for thickness.
== END | disposition home or self-care (01) ==
LOC: RADUSWWP 15:25
PROVIDERS: ATTEND Obstetrics & Gynecology
DX: N83.202 Unspecified ovarian cyst, left side (principal)
CPT/HCPCS: 76856

== ENCOUNTER → 2023-09-09 | Outpatient (CLI) | payer MEDICARE | END | disposition home or self-care (01) | LOC: LABWHC1 12:41 | PROVIDERS: ATTEND Obstetrics & Gynecology | DX: N83.8 Other noninflammatory disorders of ovary, fallopian tube and broad ligament (principal); N83.209 Unspecified ovarian cyst, unspecified side | CPT/HCPCS: 36415; 86304 ==

== ENCOUNTER → 2023-09-17 | Outpatient (CLI) | payer MEDICARE ==
[2023-09-17 11:41] LABS: ALT 25 U/L (8-44); AST 23 U/L (13-35); Albumin 4.1 g/dL (3.8-4.9); Albumin/Globulin Ratio 1.86 Ratio (1.60-3.17); Alkaline Phosphatase 71 U/L (41-126); BUN/Creat Ratio 21.22 Ratio (12.00-20.00); Blood Urea Nitrogen 19.1 mg/dL (9.0-27.0); Calcium 9.8 mg/dL (8.7-10.3); Carbon Dioxide 24.9 mmol/L (21.6-31.8); Chloride 108 mmol/L (96-109); Chol/HDL Ratio 2.32 Ratio; Globulin 2.2 g/dL (1.6-3.3); Glucose 102 mg/dL (70-110); LDL Cholesterol,Calculated 80.7 mg/dL (0.0-131.0); Potassium 4.3 mmol/L (3.5-5.5); Sodium 143 mmol/L (135-145); Total Bilirubin 0.3 mg/dL (0.3-1.2); Total Protein 6.3 g/dL (6.2-8.2); VLDL Calculation 17.72 mg/dL (5.00-40.00)
== END | disposition home or self-care (01) ==
LOC: LABWHC1 06:55
PROVIDERS: ATTEND Nurse Practitioner Adult Health
DX: I10 Essential (primary) hypertension (principal); E78.2 Mixed hyperlipidemia
CPT/HCPCS: 36415; 80053; 80061

== ENCOUNTER → 2024-02-02 | Outpatient (CLI) | payer MEDICARE ==
--- NOTE | 2024-02-02 09:22 | US ---
EXAMINATION TYPE: US abdomen complete DATE OF EXAM: 02/02/2024 COMPARISON: NONE CLINICAL INDICATION: Female, 79 years old with history of N83.209 OVARIAN CYST; pain TECHNIQUE: Multiple sonographic images of the abdomen are obtained. FINDINGS: EXAM MEASUREMENTS: Liver Length: 11.9 cm Gallbladder Wall: 0.2 cm CBD: .4 cm Spleen: 8.7 cm Right Kidney: 9.9 x 4.7 x 3.3 cm Left Kidney: 8.8 x 5.1 x 3.6 cm Pancreas: Obscured by bowel gas Liver: Increased attenuation Gallbladder: No stones seen Evidence for sonographic Wasserman's sign: No CBD: wnl Spleen: wnl Right Kidney: wnl Left Kidney: Limited due to bowel gas Upper IVC: wnl Abd Aorta: wnl The liver is homogenous with increased echotexture. The intrahepatic portion of the IVC and proximal abdominal aorta are within normal limits. There is no evidence of cholelithiasis. Common bile duct is unremarkable. The visualized portions of the pancreas are homogenous. The spleen is unremarkabl e. Kidneys are symmetric and free of hydronephrosis. No renal lesions are seen. IMPRESSION: 1. No evidence for acute process. 2. Hepatic steatosis.
--- NOTE | 2024-02-02 09:28 | US ---
EXAMINATION TYPE: US pelvic complete DATE OF EXAM: 02/02/2024 COMPARISON: 08/26/2023 CLINICAL INDICATION: Female, 79 years old with history of N83.209 OVARIAN CYST; follow up to previous left ovarian cyst TECHNIQUE: Transabdominal (TA EXAM MEASUREMENTS: Uterus: 6.5 x 2.5 x 3.3 cm Endometrial Stripe: .2 cm Left Ovary: 4.5 x 3.8 x 4.4 cm 1. Uterus: Anteverted heterogenous 2. Endometrium: wnl 3. Right Ovary: Obscured by overlying bowel gas 4. Left Ovary: Multiple cystic areas seen 3.6 x 2.2 x 2.3 cm and 3.1 x 2.1 x 2.0 cm. 5. Bilateral Adnexa: wnl 6. Posterior cul-de-sac: wnl IMPRESSION: Complicated left ovarian cyst versus 2 adjacent cysts. Findings not significantly changed from prior. Continued yearly surveillance recommended.
== END | disposition home or self-care (01) ==
LOC: RADUSWWP 08:16
PROVIDERS: ATTEND Internal Medicine
DX: K76.0 Fatty (change of) liver, not elsewhere classified (principal); N83.292 Other ovarian cyst, left side
CPT/HCPCS: 76700; 76856

== ENCOUNTER → 2024-03-12 | Outpatient (CLI) | payer MEDICARE ==
--- NOTE | 2024-03-12 18:56 | MM ---
Reason for Exam: Screening (asymptomatic). Last screening mammogram was performed 12 month(s) ago. Patient History: Menarche at age 10. First Full-Term at age 17. Postmenopausal. Other cancer, age 44. Estrogen for 3 years, 11 months. Progesterone for 3 years, 11 months. Unspecified Hormone for 3 years, 11 months. 2000, Benign Core Biopsy on the right side. Risk Values: Bonita 5 year model risk: 1.5%. NCI Lifetime model risk: 2.4%. Prior Study Comparison: 08/23/2020 Bilateral Screening Mammogram, [facility]. 10/15/2021 Bilateral Screening Mammogram, [facility]. 03/11/2023 Bilateral MG 3D screening mammo w/cad, [facility]. Tissue Density: There are scattered areas of fibroglandular density. Findings: There is no suspicious group of microcalcifications or new suspicious mass in either breast. Overall Assessment: Negative, BI-RAD 1 Management: Screening Mammogram of both breasts in 1 year. . Patient should continue monthly self-breast exams. A clinical breast exam by your physician is recommended on an annual basis. This exam should not preclude additional follow-up of suspicious palpable abnormalities. Note on Bonita scores and lifetime risk: 1. A Bonita score greater than 3% is considered moderate risk. If this is the case, consider specialist referral to assess eligibility for a risk reducing agent. 2. If overall lifetime risk for the development of breast cancer is 20% or higher, the patient may qualify for future screening with alternating mammogram and breast MRI. Electronically signed and approved by: Cordell Julien M.D. Radiologist
== END | disposition home or self-care (01) ==
LOC: RADMAMWWP 09:12
PROVIDERS: ATTEND Internal Medicine
DX: Z12.31 Encounter for screening mammogram for malignant neoplasm of breast (principal); Z78.0 Asymptomatic menopausal state
CPT/HCPCS: 77063; 77067

== ENCOUNTER → 2024-03-17 | Outpatient (CLI) | payer MEDICARE ==
[2024-03-17 18:35] LABS: ALT 22 U/L (8-44); AST 22 U/L (13-35); Chol/HDL Ratio 2.66 Ratio; VLDL Calculation 16.84 mg/dL (5.00-40.00)
== END | disposition home or self-care (01) ==
LOC: LABWHC1 08:09
PROVIDERS: ATTEND Internal Medicine Interventional Cardiology
DX: E78.2 Mixed hyperlipidemia (principal)
CPT/HCPCS: 36415; 80061; 84450; 84460

== ENCOUNTER → 2024-06-04 | Outpatient (CLI) | payer MEDICARE ==
--- NOTE | 2024-06-04 17:29 | XR ---
EXAMINATION TYPE: XR shoulder complete 3 views LT DATE OF EXAM: 06/04/2024 Comparison: None Clinical History: 79-year-old female M25.512 left shoulder pain R/O Fracture Findings: Mild degenerative joint space narrowing and marginal spurring and capsular hypertrophy at the acromio clavicular joint. Subacromial space is preserved. No acute fracture, subluxation, dislocation is seen . Impression: Mild AC joint OA. No acute osseous abnormality seen.
== END | disposition home or self-care (01) ==
LOC: RADXRMAIN 09:05
PROVIDERS: ATTEND Internal Medicine
DX: M19.012 Primary osteoarthritis, left shoulder (principal)

== ENCOUNTER → 2025-01-04 | Outpatient (CLI) | payer MEDICARE ==
[2025-01-04 18:28] LABS: HCT 37.2 % (37.2-46.3); MCH 29.4 pg (27.0-32.0); MCHC 32.3 g/dL (32.0-37.0); MCV 91.2 FL (80.0-97.0); Mean Platelet Volume 10.4 FL (9.5-12.2); NRBC Per 100 WBC 0 X 10*3/uL (0.00-0.01); Platelet Count 270 X 10*3/uL (140-440); RBC 4.08 X 10*6/uL (4.10-5.20); RDW 13.8 % (11.5-14.5); WBC 6.82 X 10*3/uL (4.50-10.00)
[2025-01-04 18:42] LABS: BUN/Creat Ratio 17.89 Ratio (12.00-20.00); Blood Urea Nitrogen 16.1 mg/dL (9.0-27.0); Calcium 9.5 mg/dL (8.7-10.3); Carbon Dioxide 25.4 mmol/L (21.6-31.8); Chloride 107 mmol/L (96-109); Glucose 126 mg/dL (70-110); Potassium 4.2 mmol/L (3.5-5.5); Sodium 142 mmol/L (135-145)
== END | disposition home or self-care (01) ==
LOC: LABWHC1 14:09
PROVIDERS: ATTEND Nurse Practitioner Adult Health
DX: R55 Syncope and collapse (principal)
CPT/HCPCS: 36415; 80048; 85027

== ENCOUNTER → 2025-03-17 | Outpatient (CLI) | payer MEDICARE ==
--- NOTE | 2025-03-17 10:54 | XR ---
EXAMINATION TYPE: XR shoulder complete RT DATE OF EXAM: 03/17/2025 10:31 AM COMPARISON: None CLINICAL INDICATION: Female, 80 years old with history of M25.511 Pain rt shoulder; PHH, pain TECHNIQUE: XR shoulder complete RT; examined in AP, internally rotated and scapular Y projections. FINDINGS: No evidence of acute osseous pathology, joint dislocation, or soft tissue swelling. The remaining po rtions of the visualized chest are unremarkable. Mild degeneration changes of the acromion and dista l clavicle. IMPRESSION: No acute osseous pathology. [facility], , 03/17/2025 10:52 AM
== END | disposition home or self-care (01) ==
LOC: RADXRMAIN 10:06
PROVIDERS: ATTEND Family Medicine
DX: M25.511 Pain in right shoulder (principal)

== ENCOUNTER → 2025-03-21 | Outpatient (CLI) | payer MEDICARE ==
--- NOTE | 2025-03-21 17:25 | US ---
EXAMINATION TYPE: US pelvic complete DATE OF EXAM: 03/21/2025 COMPARISON: US 02/02/24 CLINICAL INDICATION: Female, 80 years old with history of N83.209 UNSPECIFIED OVARIAN CYST, UNSPECIFI ED SIDE; F?U ovarian cyst TECHNIQUE: Transabdominal (TA). Transabdominal grayscale sonographic images of the pelvis were acquired. Doppler imaging: Not performed. FINDINGS: Date of LMP: post-katy EXAM MEASUREMENTS: Uterus: 6.7x3.7x4.2 cm Endometrial Stripe: 0.2 cm Right Ovary: Not visualized due to bowel gas. Left Ovary: no ovarian tissue definitively visualized 1. Uterus: atrophic appearance, heterogenous echotexture 2. Endometrium: wnl 3. Right Ovary: Obscured by overlying bowel gas 4. Left Ovary/Adnexa: cyst cluster again noted measuring 6.9x2.4x4.3cm Spectral, color and waveform doppler imaging shows good arterial and venous flow within the ovaries ; there is no evidence for ovarian torsion. 5. Bilateral Adnexa: Obscured by overlying bowel gas 6. Posterior cul-de-sac: wnl IMPRESSION: 1. Cystic lesion possibly tubular in the left adnexa which could represent dilated fallopian tube. C onsider further evaluation with MRI pelvis with contrast. 2. Endometrium within normal limits for thickness. O-RADS 2021 [email or web address] [facility], , 03/21/2025 5:23 PM
== END | disposition home or self-care (01) ==
LOC: RADUSWWP 15:54
PROVIDERS: ATTEND Internal Medicine
DX: N83.202 Unspecified ovarian cyst, left side (principal)
CPT/HCPCS: 76856

== ENCOUNTER 2025-04-05 06:21 | Day surgery (SDC) | payer MEDICARE ==
[2025-04-04 10:17] VITALS: BMI 25.6
[~2025-04-05 06:21] MED LIST changes: -DEXAMETHASONE SOD PHOSPHATE 10 MG/ML 1 ML VIAL IV ONE; -HYDROmorphone 0.5 MG/0.5 ML SYRINGE IVP PRN; -LACTATED RINGERS 1,000 ML IV SCH; +LIDOCAINE 1% (10MG/ML) FOR IV START INTRADERMA PRN; -ONDANSETRON 4 MG/2 ML VIAL IVP ONE; -ONDANSETRON 4 MG/2 ML VIAL IVP PRN
[2025-04-05] MEDS: IV FLUID CONTINUATION 1,000 ML IV ONE (06:44)
[2025-04-05] MEDS ORDERED: ONDANSETRON 4 MG/2 ML VIAL IVP PRN (07:00)
[2025-04-05] MEDS: LACTATED RINGERS 1,000 ML IV SCH (07:07)
[2025-04-05 07:17] VITALS: TEMP 97
[2025-04-05] MEDS ORDERED: PROPOFOL 10 MG/ML 20 ML VIAL IV ONE (07:29)
--- NOTE | 2025-04-05 08:14 | P.PCN ---
Date of Procedure: 04/05/25 Procedure(s) Performed: Brief history: Patient is a pleasant 80-year-old white female scheduled for an elective upper endoscopy as well as colonoscopy as a part of evaluation of GERD and screening for colon cancer Procedure performed: Esophagogastroduodenoscopy with biopsy Colonoscopy Preoperative diagnosis: GERD Screening for colon cancer Anesthesia: [facility] [place] Procedure: After informed consent was obtained from the patient was brought into the endoscopy unit and IV sedation was administered by anesthesia under continuous monitoring. Initially upper endoscopy was done. The Olympus GF 160 video endoscope was inserted inserted into the mouth and esophagus intubated without any difficulty and was gradually advanced into the stomach and duodenum and carefully examined. The bulb and second part of the duodenum appeared normal. The scope was then withdrawn into the stomach adequately insufflated with air and upon careful examination the antrum antrum had mild gastritis and biopsies were done from this area. Mucosa body, cardia and fundus appeared normal. The scope was then withdrawn into the esophagus. Small hiatal hernia noted. The GE junction was located at 35 cm to the incisors. It appeared regular with superficial erosions consistent with LA grade B reflux esophagitis. Also there was 3 mm tongues of Shah's appearing mucosa proximal to the GE junction that was biopsied. Rest of the esophagus appeared normal. Patient tolerated the procedure well. At this time the patient continued to remain sedation. Initial digital rectal examination was normal. Olympus CF 160 video colonoscope was then inserted into the rectum and gradually advanced to the cecum without any difficulty. Careful examination was performed as the scope was gradually being withdrawn. The prep was excellent. The cecum, ascending colon, transverse colon, descending colon, sigmoid colon and rectum appeared normal. Scattered sigmoid diverticulosis. Retroflexion was performed in the rectum and small internal were noted. Patient tolerated the procedure well. Impression: 1. Upper endoscopy revealed mild antral gastritis, small hiatal hernia, LA grade B reflux esophagitis and short segment Shah's esophagus 2. Colonoscopy revealed scattered sigmoid diverticulosis and small internal hemorrhoids Recommendations: Findings of this examination were discussed with the patient as well as her family. She was advised to continue with omeprazole 40 mg daily and follow antireflux measures. The office in 2 weeks. If the biopsy confirms the presence of Shah's esophagus, she can have repeat upper endoscopy in 3 years.
[2025-04-05 08:31] VITALS: BP 140/72; PULSE 67; RESP 16
== END 2025-04-05 08:53 | disposition home or self-care (01) ==
LOC: ORWHC2ENDO 06:21
PROVIDERS: ATTEND Internal Medicine Gastroenterology
DX: Z12.11 Encounter for screening for malignant neoplasm of colon (principal); K29.50 Unspecified chronic gastritis without bleeding; D72.10 Eosinophilia, unspecified; K21.00 Gastro-esophageal reflux disease with esophagitis, without bleeding; K22.70 Barrett's esophagus without dysplasia; K44.9 Diaphragmatic hernia without obstruction or gangrene; K57.30 Diverticulosis of large intestine without perforation or abscess without bleeding; K64.8 Other hemorrhoids; I10 Essential (primary) hypertension; E78.5 Hyperlipidemia, unspecified; I48.91 Unspecified atrial fibrillation; M19.90 Unspecified osteoarthritis, unspecified site; K21.9 Gastro-esophageal reflux disease without esophagitis; Z79.01 Long term (current) use of anticoagulants; Z79.899 Other long term (current) drug therapy; Z88.8 Allergy status to other drugs, medicaments and biological substances
CPT/HCPCS: 88305; 43239; J2704; G0121

== ENCOUNTER → 2025-04-06 | Outpatient (CLI) | payer MEDICARE ==
--- NOTE | 2025-04-07 11:06 | MM ---
Reason for Exam: Screening (asymptomatic). Last mammogram was performed 1 year(s) and 1 month(s) ago. Patient History: Menarche at age 10. First Full-Term at age 17. Postmenopausal. Other cancer, age 44. Estrogen for 3 years, 11 months. Progesterone for 3 years, 11 months. Unspecified Hormone for 3 years, 11 months. 12/19/2021, Stereotactic Core Biopsy - 3D on the Right side. 2000, Benign Core Biopsy on the right side. Risk Values: Bonita 5 year model risk: 1.9%. NCI Lifetime model risk: 2.8%. Prior Study Comparison: 10/15/2021 Bilateral Screening Mammogram, [facility]. 03/11/2023 Bilateral MG 3D screening mammo w/cad, [facility]. 03/12/2024 Bilateral MG 3D screening mammo w/cad, [facility]. Tissue Density: There are scattered areas of fibroglandular density. Findings: Analyzed By CAD. Bilateral areas of asymmetric density are unchanged. Benign vascular calcifications. There is no suspicious group of microcalcifications or new suspicious mass in either breast. Overall Assessment: Benign, BI-RAD 2 Management: Screening Mammogram of both breasts in 1 year. Patient should continue monthly self-breast exams. A clinical breast exam by your physician is recommended on an annual basis. This exam should not preclude additional follow-up of suspicious palpable abnormalities. Note on Bonita scores and lifetime risk: 1. A Bonita score greater than 3% is considered moderate risk. If this is the case, consider specialist referral to assess eligibility for a risk reducing agent. 2. If overall lifetime risk for the development of breast cancer is 20% or higher, the patient may qualify for future screening with alternating mammogram and breast MRI. [facility], , 04/07/2025 11:02 AM. Electronically signed and approved by: Cordell Julien M.D. Radiologist
== END | disposition home or self-care (01) ==
LOC: RADMAMWWP 16:05
PROVIDERS: ATTEND Internal Medicine
DX: Z12.31 Encounter for screening mammogram for malignant neoplasm of breast (principal); R92.323 Mammographic fibroglandular density, bilateral breasts; Z78.0 Asymptomatic menopausal state; Z92.0 Personal history of contraception
CPT/HCPCS: 77063; 77067

== ENCOUNTER → 2025-04-25 | Outpatient (CLI) | payer MEDICARE ==
--- NOTE | 2025-04-28 18:44 | MR ---
EXAMINATION TYPE: MR pelvis wo/w con DATE OF EXAM: 04/25/2025 COMPARISON: Pelvic ultrasound 03/21/2025, 02/02/2024, 08/26/2023 CLINICAL INDICATION:Female, 80 years old with history of N83.209; PHH, TECHNIQUE: Triplane multisequence imaging was performed of the pelvis. Then the patient was given c ontrast/gadolinium, 6.5 cc of Gadobutrol and multiple post contrast sequences where obtained. FINDINGS: Reproductive: Vagina: Unremarkable. Uterus: The uterus is retroflexed in position. Uterus measures 5.2 x 2.8 x 4.1 cm. The endometrium is normal thickness measuring 2 to 3 mm. The junctional zone is within normal limits. Anterior uterine body 1.4 cm lesion demonstrating some heterogenous internal enhancement but predominantly hypointense on T1 imaging. Consistent with a fibroid. Ovaries: Right ovary appears unremarkable. Left ovarian follicles demonstrated. Left ovarian 4.5 x 2. 6 cm thin-walled cystic lesion with 2 thin septations. Additional left ovarian 4.8 x 2.4 cm thin wall cystic lesion without septations. No enhancing solid tissue within the lesions. These demonstrate sm ooth thin wall enhancement. Bladder: Unremarkable. Bowel: No evidence of bowel obstruction. Sigmoid diverticulosis without evidence for acute diverticul itis.. Peritoneum: A amount of free fluid in the pelvis. No evidence of adenopathy. Vasculature: Unremarkable. Abdominal wall/soft tissues: Unremarkable. Musculoskeletal: Multilevel degenerative changes of the lumbar spine with dextroscoliotic curvature. IMPRESSION: 1. There are 2 left ovarian cystic lesions measuring 4.5 and 4.8 cm. The smaller lesion demonstrates a couple of thin septations. The larger lesion is unilocular. No solid enhancing components identifie d. Nonspecific with etiologies including serous cystadenoma versus other etiologies. These are ORAD 3 . Gynecologic referral recommended with further workup. 2. Small fibroid changes of the uterus. [facility], , 04/28/2025 6:42 PM
== END | disposition home or self-care (01) ==
LOC: RADMRIMAIN 21:30
PROVIDERS: ATTEND Internal Medicine
DX: N83.202 Unspecified ovarian cyst, left side (principal); D25.9 Leiomyoma of uterus, unspecified
CPT/HCPCS: 72197; A9585